=== PATIENT | female | born 1950 | race Caucasian/White ===

== ENCOUNTER 2017-03-05 20:23 | Observation (INO) | payer MEDICARE, BC ==
[2017-03-05] MEDS ORDERED: fentaNYL 100 MCG/2 ML SDV IVPUSH ONE (20:49)
[2017-03-05] MEDS: Sodium Chloride 0.9% 10 ML Syringe FLUSH PRN (21:22)
[2017-03-05] MEDS ORDERED: HYDROmorphone 2 MG/ML SDV IVPUSH ONE (22:03)
[2017-03-05] MEDS ORDERED: Iopamidol 755 Mg/ML 100 ML Bottle IV ONE (22:48)
[2017-03-05] MEDS ORDERED: Iopamidol 755 Mg/ML 75 ML Bottle IV ONE (23:41)
[2017-03-05] MEDS ORDERED: Morphine PF 30 MG/30 ML PCA Vial IV SCH (23:45)
[2017-03-06] MEDS ORDERED: HYDROmorphone 2 MG/ML SDV IVPUSH ONE (00:15)
--- NOTE | 2017-03-06 00:30 | ER ---
DATE SEEN: 03/05/2017 REASON FOR VISIT: Chest pain. HISTORY OF PRESENT ILLNESS: This is a 66-year-old female, who was brought in because of chest wall pain on the left side below the left breast, sudden onset pain, moderate to severe, and to the point that she had to call the ambulance. Gets worse with breathing. 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 She has been seeing Dr. Morris for wound packing. Nothing that she did tonight that started the pain. REVIEW OF SYSTEMS: Denies any cough. No fever or chills. All other systems negative. ALLERGIES: Reviewed. MEDICATIONS: Reviewed. PHYSICAL EXAMINATION: GENERAL: She appears in pain. VITAL SIGNS: Blood pressure is normal and she is afebrile. Oxygenation is 100%. EARS, NOSE, AND THROAT: Negative. CHEST: There is a wound on the left rib cage that is bleeding, otherwise normal breath sounds anteriorly. EXTREMITIES: No edema. ABDOMEN: Soft. SKIN: Mild pallor. LABORATORY DATA: D-dimer is 3400, white cell count 12.5, hemoglobin 11.1, and troponin negative. Chest x-ray showed left-sided pleural effusion. CT is pending. IMPRESSION: Chest pain of unknown etiology. PLAN: Plan is to admit the patient for pain control. EMERGENCY DEPARTMENT COURSE: I gave 50 mcg of fentanyl with no relief, 2 mg of Dilaudid that only gave 20-30 minutes of relief. I will admit her for morphine ENVIRONMENTAL SERVICE AIDE and consult Dr. Morris for wound management in the morning. /[id number] GENA/CHRISTI
[2017-03-06] MEDS: Sodium Chloride 0.9% 10 ML Syringe FLUSH PRN ×2 (00:55→00:56)
[2017-03-06] MEDS ORDERED: Sodium Chloride 0.9% 1,000 ML IV ONE (01:35)
[2017-03-06] MEDS ORDERED: fentaNYL 100 MCG/2 ML SDV IVPUSH ONE (01:35)
[2017-03-06] MEDS ORDERED: Ondansetron 4 MG/2 ML SDV IVPUSH ONE (01:35)
--- NOTE | 2017-03-06 02:51 | HP ---
ADMISSION DATE: 03/05/2017 UPDATE: The patient was admitted initially without a CT report, which came up after 10-15 minutes after admission showing an aortic rupture in descending order. I called [facility], the cardiothoracic Surgery emissions engineer recommended sending her back to the [facility]. The patient's pain still unable to be controlled despite Dilaudid, I gave 100 mcg of fentanyl. The [facility] reviewed the CT report and the CT images and was finally able to accept her at 0215 hours, Dr. Nguyen, the patient was transported to the [employer] [place] the airport by an [facility]. Prior to discharge, I had given 1 L of normal saline, which was advised to give the patient just to keep open and the patient was transferred in hemodynamically stable condition. I spent an hour of critical care in coordinating and transferring the patient. /[id number] GENA/CHRISTI
[2017-03-06 04:20] VITALS: BP 139/99
--- NOTE | 2017-03-07 09:54 | DISCH ---
DATE OF TRANSFER: 03/06/2017 REASON FOR ADMISSION: Chest pain. DISCHARGE DIAGNOSIS: Aortic rupture. BRIEF HISTORY: This is a 66-year-old female, who came in with chest pain into the Emergency Room. Please see the history and the Emergency Room note for further details. The patient was transferred out at about 0230 hours. after the [facility] accepted her. She was discharged in satisfactory condition. DISCHARGE PHYSICAL EXAMINATION: VITAL SIGNS: Blood pressure was 137/95, pulse was 104, oxygen saturation was 98% on 2 L nasal cannula, and respiratory rate was 20. /[id number] GENA/CHRISTI
--- NOTE | 2017-03-07 10:49 | CR ---
INDICATION: Sudden pain and shortness of breath. CHEST: A single AP upright view of the chest was obtained 03/05/2017 and compared with 11/11/2015 PA view, revealing a relatively poor inspiration. There is now complete opacification of the upper lung field on the left, partial opacification of the lower lung field on the left. There is a small amount of aerated lung and a moderate to moderately large left pleural effusion. The right lung and pleural space appeared to be negative for an acute process. Vidal rods and pedicle screws are noted in place through the cervical and thoracic spine, which is a new finding also. The heart did not appear enlarged, allowing for the AP positioning. IMPRESSION: 1. Pleuroparenchymal changes on the left, likely on the basis of previous lung surgery and possibly metastatic disease. 2. Post spinal fusion cervical thoracic spine. MTDD
== END 2017-03-06 02:35 ==
LOC: FB.ED 20:23 → FB.MS 23:50
PROVIDERS: ADMIT Family Medicine; ATTEND Family Medicine
DX: I71.1 Thoracic aortic aneurysm, ruptured (principal); Z88.8 Allergy status to other drugs, medicaments and biological substances; Z79.899 Other long term (current) drug therapy
CPT/HCPCS: 36415; 71010; 71260; 80053; 83880; 84484; 85025; 85379; 85651; 86140; 86850; 86900; 86901; 93005; 96374; 96375; 96376; 99217; 99218; 99284; 99285; G0378; J1170; J2405; J3010; J7040; J7050; Q9967

== ENCOUNTER 2023-05-07 23:07 | Emergency (ER) | payer MEDICARE, BC ==
[2023-05-07] MEDS ORDERED: Ketorolac 30 MG/ML SDV IVPUSH ONE (23:31)
[2023-05-07] MEDS ORDERED: Gabapentin 600 MG Tab PO STA (23:31)
[2023-05-07 23:37] LABS: BASOPHILS ABSOLUTE AUTO 0.1 x10-3/uL (0.0-0.1); BASOPHILS PERCENT AUTO 0.9 % (0.2-1.5); EOSINOPHILS ABSOLUTE AUTO 0.3 x10-3/uL (0.0-0.8); EOSINOPHILS PERCENT AUTO 4.6 % (0.6-8.1); HEMATOCRIT 36.6 % (34.2-48.2); HEMOGLOBIN 11.9 g/dL (11.4-15.5); LYMPHOCYTES PERCENT AUTO 18.1 % (18.4-52.1); MEAN CORPUSCULAR HEMOGLOBIN 29.2 pg (23.9-33.9); MEAN CORPUSCULAR HGB CONC 32.5 g/dL (31.9-34.8); MEAN CORPUSCULAR VOLUME 89.7 fL (76.7-100.5); MEAN PLATELET VOLUME 8.2 fL (7.1-12.4); MONOCYTES ABSOLUTE AUTO 0.8 x10-3/uL (0.3-1.0); MONOCYTES PERCENT AUTO 14.4 % (4.4-15.7); NEUTROPHILS ABSOLUTE AUTO 3.5 x10-3/uL (1.5-6.3); PLATELET COUNT,PLT 196 x10(3)uL (151-488); RED BLOOD CELL COUNT 4.08 x10(6)uL (3.60-5.20); RED CELL DISTRIBUTION WIDTH 14.4 % (12.3-16.5); WHITE BLOOD CELL COUNT,WBC 5.6 x10-3/uL (3.0-10.3)
[2023-05-07 23:39] LABS: BLOOD UREA NITROGEN,BUN 38 mg/dL (7-18); CALCIUM 8.9 mg/dL (8.6-10.2); CARBON DIOXIDE,CO2 32 mmol/L (21-32); CHLORIDE,CL 108 mmol/L (100-110); ESTIMATED GFR 60 mL/min (>60); GLUCOSE RANDOM 104 mg/dL (80-116); POTASSIUM,K 4.3 mmol/L (3.5-5.3); SODIUM,NA 139 mmol/L (135-145)
[2023-05-07 23:45] LABS: A/G RATIO 1.3; ALANINE AMINOTRANSFERASE,ALT 27 U/L (12-36); ALBUMIN 3.6 g/dL (3.2-4.6); ALKALINE PHOSPHATASE 98 IU/L (56-112); ASPARTATE AMNIOTRANSFERASE,AST 22 IU/L (5-25); BILIRUBIN TOTAL 0.4 mg/dL (0.1-1.3); PROTEIN TOTAL,TP 6.4 g/dL (6.0-8.0)
[2023-05-07 23:47] VITALS: BP 156/75; PULSE 81
[2023-05-08] MEDS ORDERED: Gabapentin 600 MG Tab PO SCH ×2 (21:00→23:45)
== END 2023-05-08 00:57 | disposition home or self-care (01) ==
LOC: FB.ED 23:07
DX: G62.9 Polyneuropathy, unspecified (principal); J45.909 Unspecified asthma, uncomplicated; E03.9 Hypothyroidism, unspecified; Z91.09 Other allergy status, other than to drugs and biological substances; Z88.5 Allergy status to narcotic agent; Z88.6 Allergy status to analgesic agent; Z79.51 Long term (current) use of inhaled steroids; Z79.82 Long term (current) use of aspirin; Z79.899 Other long term (current) drug therapy
CPT/HCPCS: 36415; 80053; 85025; 96374; 99284; A9270; J1885